=== PATIENT | female | born 1970 | race Caucasian/White ===

== ENCOUNTER 2016-10-02 21:32 | Emergency (ER) | payer OTHER ==
[~2016-10-02] VITALS: Ht 152.4 cm; Wt 68.8 kg
[~2016-10-02 21:32] MED LIST: ANT25 PO; ASMTWH INH; CETICHW4 PO; IBUP-1050 PO; MOME50SP5; PRLSR20 PO
[2016-10-02 21:33] VITALS: TEMP 37; Ht 152.4 cm; Wt 68.8 kg
[2016-10-02 22:07] LABS: PREG INTERNAL NEGATIVE QC NEG CLEAR BACKGROUND; PREG INTERNAL POSITIVE QC POS CONTROL LINE
[2016-10-02] MEDS ORDERED: FLNIN/ NAE (22:20)
[2016-10-02] MEDS ORDERED: ADVIN25/60 INH (22:20)
[2016-10-02] MEDS ORDERED: VNTHFA/IN INH (22:20)
[2016-10-02] MEDS ORDERED: PANT20TA PO (22:20)
[2016-10-02] MEDS ORDERED: SNG10 PO (22:20)
[2016-10-02] MEDS ORDERED: FLX/5 PO (22:20)
[2016-10-02 22:26] LABS: BASO % 2.2 %; COMPLETE YES; HEMATOCRIT 34.5 % (37-47); IG% 0.2 %; LYMPH ABS # 1.29 K/uL (1.2-3.4); MEAN CORPUSCULAR HEMOGLOBIN 26.8 pg (25-34); MEAN PLATELET VOLUME 9.8 fL (7.4-10.4); MONO % 9.1 %; NEUT % 58.5 %; PLATELET COUNT 317 K/uL (130-400); RED BLOOD COUNT 4.26 M/uL (4.2-5.4); WHITE BLOOD COUNT 4.61 K/uL (4.8-10.8)
[2016-10-02 22:32] LABS: BENZODIAZEPINE, URINE NEG (NEG); COCAINE,URINE NEG (NEG); PHENCYCLIDINE, URINE NEG (NEG)
[2016-10-02 22:44] LABS: BUN/CREATININE RATIO 21.5 (10-20); CALCIUM 8.8 mg/dl (8.5-10.1); CREATININE 0.62 mg/dl (0.60-1.20); POTASSIUM 3.7 mmol/L (3.5-5.1)
[2016-10-02] MEDS ORDERED: ALBUTEROL HFA 8 GM INHALER INH ONE (22:45)
[2016-10-02 22:52] LABS: ACETAMINOPHEN < 2 ug/ml (10-30)
[2016-10-02 22:55] LABS: ALB/GLOB RATIO 0.9 (0.9-2); THYROID STIMULATING HORMONE 2.33 uIu/ml (0.300-4.500)
--- NOTE | 2016-10-03 00:40 | EMERGENCY ROOM VISIT NOTE ---
History Report prepared by Allen: Andreea Quispe Under the Supervision of: Dr. Suresh Mckeon D.O. 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 The patient was arguing with her today. The patient and her are and he currently owes her money. She took a paring knife and brought it to her wrist in anger. She was not intending to kill herself. She states that she was just taking out the anger towards her on herself. She did not make any statements about wanting to kill herself. She denies any history of mental health problems or attempts to hurt herself before. She is agreeable to outpatient care, but would not like inpatient care as she has a job and children and pets to take care of. She denies any drug or alcohol use. She denies any chance of . She denies any history of diabetes or thyroid problems. 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 Review of Systems See HPI for pertinent positives & negatives. A total of 10 systems reviewed and were otherwise negative. Past Medical & Surgical Medical Problems: (1) Asthma, Unspecified (2) GERD (gastroesophageal reflux disease) (3) Tobacco Use Disorder Surgical Problems: (1) History of tubal ligation Family History Cancer Hypertension Social History Smoking Status: Never Smoker Alcohol Use: none Drug Use: none Marital Status: Occupation Status: employed Current/Historical Medications Scheduled Albuterol Hfa (Ventolin Hfa), 2 PUFFS INH UD Cyclobenzaprine HCl (Cyclobenzaprine HCl), 2.5 MG PO HS Fluticasone Prop/Salmeterol (Advair Diskus 250/50 60 Dose), 1 PUFF INH DAILY Fluticasone Propionate (Fluticasone Propionate), 2 SPRAYS LOUANN BID Montelukast Sod (Montelukast Sodium), 10 MG PO HS Pantoprazole Sodium (Protonix), 20 MG PO DAILY Scheduled PRN Ibuprofen (Advil), 400-600 MG PO Q6H PRN for Pain Allergies Coded Allergies: Aspirin (Verified Allergy, Unknown, 08/31/13) Erythromycin (Verified Allergy, Unknown, RASH, 10/02/16) Penicillins (Verified Allergy, Unknown, 02/04/11) Sulfa Drugs (Verified Allergy, Unknown, 02/04/11) Sulfamethoxazole (Verified Allergy, Unknown, 02/04/11) Uncoded Allergies: HAYFEVER, SEASONAL ALLERGIES (Allergy, Unknown, 04/25/02) NONSTEROIDAL (Allergy, Unknown, 04/17/09) Physical Exam Vital Signs Date Time Temp Pulse Resp B/P (MAP) Pulse Ox O2 Delivery O2 Flow Rate FiO2 10/02/16 22:33 74 18 133/85 99 Room Air 10/02/16 21:33 37.0 93 18 150/91 97 Room Air Physical Exam CONSTITUTIONAL/VITAL SIGNS: Reviewed / noted above. GENERAL: Non-toxic in appearance. INTEGUMENTARY: Warm, dry, and Dent. HEAD: Normocephalic. EYES: without scleral icterus or trauma. ENT/OROPHARYNX: clear and moist. LYMPHADENOPATHY/NECK: Is supple without lymphadenopathy or meningismus. RESPIRATORY: Lungs clear and equal. CARDIOVASCULAR: Regular rate and rhythm. GI/ABDOMEN: Soft and nontender. No organomegaly or pulsatile mass. No rebound or guarding. Normal bowel sounds. EXTREMITIES: Warm and well perfused. BACK: No CVA tenderness. NEUROLOGICAL: Intact without focal deficits. PSYCHIATRIC: mildly depressed affect. MUSCULOSKELETAL: Normally developed with good muscle tone. Medical Decision & Procedures Laboratory Results 10/02/16 22:11 Red Blood Count 4.26, Mean Corpuscular Volume 81.0, Mean Corpuscular Hemoglobin 26.8, Mean Corpuscular Hemoglobin Concent 33.0, Mean Platelet Volume 9.8, Neutrophils (%) (Auto) 58.5, Lymphocytes (%) (Auto) 28.0, Monocytes (%) (Auto) 9.1, Eosinophils (%) (Auto) 2.0, Basophils (%) (Auto) 2.2, Neutrophils # (Auto) 2.70, Lymphocytes # (Auto) 1.29, Monocytes # (Auto) 0.42, Eosinophils # (Auto) 0.09, Basophils # (Auto) 0.10 10/02/16 22:11 Test 10/02/16 21:45 10/02/16 22:11 Urine Test NEG (NEG) Urine Opiates Screen NEG (NEG) Urine Methadone, Qualitative NEG (NEG) Urine Barbiturates NEG (NEG) Urine Phencyclidine (PCP) Level NEG (NEG) Ur Amphetamine/Methamphetamine NEG (NEG) MDMA (Ecstasy) Screen NEG (NEG) Urine Benzodiazepines Screen NEG (NEG) Urine Cocaine Metabolite NEG (NEG) Urine Marijuana (THC) NEG (NEG) White Blood Count 4.61 K/uL (4.8-10.8) Red Blood Count 4.26 M/uL (4.2-5.4) Hemoglobin 11.4 g/dL (12.0-16.0) Hematocrit 34.5 % (37-47) Mean Corpuscular Volume 81.0 fL (80-100) Mean Corpuscular Hemoglobin 26.8 pg (25-34) Mean Corpuscular Hemoglobin Concent 33.0 g/dl (32-36) Platelet Count 317 K/uL (130-400) Mean Platelet Volume 9.8 fL (7.4-10.4) Neutrophils (%) (Auto) 58.5 % Lymphocytes (%) (Auto) 28.0 % Monocytes (%) (Auto) 9.1 % Eosinophils (%) (Auto) 2.0 % Basophils (%) (Auto) 2.2 % Neutrophils # (Auto) 2.70 K/uL (1.4-6.5) Lymphocytes # (Auto) 1.29 K/uL (1.2-3.4) Monocytes # (Auto) 0.42 K/uL (0.11-0.59) Eosinophils # (Auto) 0.09 K/uL (0-0.5) Basophils # (Auto) 0.10 K/uL (0-0.2) RDW Standard Deviation 46.0 fL (36.4-46.3) RDW Coefficient of Variation 15.6 % (11.5-14.5) Immature Granulocyte % (Auto) 0.2 % Immature Granulocyte # (Auto) 0.01 K/uL (0.00-0.02) Anion Gap 10.0 mmol/L (3-11) Est Creatinine Clear Calc Drug Dose 98.1 ml/min Estimated GFR () 125.3 Estimated GFR (Non- 108.1 BUN/Creatinine Ratio 21.5 (10-20) Calcium Level 8.8 mg/dl (8.5-10.1) Total Bilirubin 0.3 mg/dl (0.2-1) Aspartate Amino Transf (AST/SGOT) 31 U/L (15-37) Alanine Aminotransferase (ALT/SGPT) 19 U/L (12-78) Alkaline Phosphatase 79 U/L (45-117) Total Protein 7.4 gm/dl (6.4-8.2) Albumin 3.5 gm/dl (3.4-5.0) Globulin 3.9 gm/dl (2.5-4.0) Albumin/Globulin Ratio 0.9 (0.9-2) Thyroid Stimulating Hormone (TSH) 2.330 uIu/ml (0.300-4.500) Salicylates Level < 1.7 mg/dl (2.8-20) Acetaminophen Level < 2 ug/ml (10-30) Ethyl Alcohol mg/dL < 3.0 mg/dl (0-3) Laboratory results as stated above per my review. Medications Administered Medications (Trade) Dose Ordered Sig/Nandini Route Start Time Stop Time Status Last Admin Dose Admin Albuterol (Ventolin Hfa Inhaler) 2 puffs NOW ONCE INH 10/02/16 22:45 10/02/16 22:46 DC 10/02/16 22:39 60 PUFFS ED Course 2139: Previous medical records were reviewed. The patient was evaluated in room A6. A complete history and physical examination was performed. 2245: Albuterol 2 puffs INH. 0045: On reevaluation, the patient is resting comfortably. I discussed the results and findings with the patient. She verbalized agreement of the treatment plan. She was discharged home. Medical Decision differential includes toxic ingestions, self-mutilation, suicidal ideation, suicide attempt, depression. This is a 46-year-old female who presents to the ED with a chief complaint of stating that she was upset with her current . She is currently . She states that he owes her rent. She was in an argument with him today about this and she subsequently was upset. She states that she took a small paring knife and was lightly cutting her wrist. She has no history of this. She denies being suicidal or homicidal. She states that she was taking her anger out on herself. The patient denies being suicidal or homicidal at this time. Her exam was relatively unremarkable. She has a slight scratch to the left wrist. It is unlikely the patient was attempting to seriously injure her self with this attempt. Her blood work was unremarkable. She was medically cleared. She was evaluated by the [facility] mental health services staff. They also do not feel the patient is actively suicidal. She does agree to safety planning. She agrees to outpatient follow-up. The patient was felt to be stable for discharge. Medication Reconcilliation Current Medication List: was personally reviewed by me Blood Pressure Screening Patient's blood pressure: Elevated blood pressure Blood pressure disposition: Elevated BP felt to be situational Impression Primary Impression: Depression Scribe Attestation The scribe's documentation has been prepared under my direction and personally reviewed by me in its entirety. I confirm that the note above accurately reflects all work, treatment, procedures, and medical decision making performed by me. Departure Information Dispostion Home / Self-Care Referrals Jovani Conte M.D. (MEDICAL) (PCP) Patient Instructions [facility] Additional Instructions Follow-up with outpatient resources as discussed. Return for any concerns or worsening.
[2016-10-03 00:48] VITALS: BP 135/73; PULSE 85; O2SAT 97
== END 2016-10-03 00:54 | disposition home or self-care (01) ==
LOC: C.EDB 21:33 → C.EDA 10-03 00:54
DX: F32.9 Major depressive disorder, single episode, unspecified (principal); K21.9 Gastro-esophageal reflux disease without esophagitis; J45.909 Unspecified asthma, uncomplicated; F17.200 Nicotine dependence, unspecified, uncomplicated; Z98.51 Tubal ligation status; Z79.899 Other long term (current) drug therapy; Z88.0 Allergy status to penicillin; Z88.2 Allergy status to sulfonamides; Z88.3 Allergy status to other anti-infective agents; Z88.6 Allergy status to analgesic agent; Z80.9 Family history of malignant neoplasm, unspecified; Z82.49 Family history of ischemic heart disease and other diseases of the circulatory system

== ENCOUNTER → 2017-03-14 | Outpatient (CLI) | payer OTHER ==
[~2017-03-14] MED LIST changes: +ADVIN25/60 INH; -ANT25 PO; -ASMTWH INH; -CETICHW4 PO; +FLNIN/ NAE; +FLX/5 PO; -MOME50SP5; +PANT20TA2 PO; -PRLSR20 PO; +SNG10 PO; +VNTHFA/IN INH
--- NOTE | 2017-03-15 14:56 | MAMMOGRAPHY REPORT ---
BILATERAL DIGITAL SCREENING MAMMOGRAM TOMOSYNTHESIS WITH CAD: 03/14/2017 CLINICAL HISTORY: Routine screening. TECHNIQUE: Breast tomosynthesis in addition to standard 2D mammography was performed. Current study was also evaluated with a Computer Aided Detection (CAD) system. COMPARISON: Comparison is made to exams dated: 02/06/2015 mammogram, 03/08/2016 mammogram, 10/25/2012 mammogram, 10/20/2011 mammogram, 10/15/2010 mammogram, and 10/09/2009 mammogram - [facility] [address] enter. BREAST COMPOSITION: There are scattered areas of fibroglandular density in both breasts. FINDINGS: The right 2-D CC view is slightly degraded by patient motion. However, the right CC tomosy nthesis images and reconstructed C-view have no patient motion and are felt to be adequate for evalua tion from a technical standpoint. There are scattered stable benign calcifications in the breasts. Numerous circumscribed subcentimeter masses are again seen in the left breast, stable comparing to pr ior mammograms, particularly the tomosynthesis images from 2016, most likely representing benign fibr ocystic change. No new suspicious mass, architectural distortion or cluster of microcalcifications i s seen. IMPRESSION: ACR BI-RADS CATEGORY 1: NEGATIVE There is no mammographic evidence of malignancy. A 1 year screening mammogram is recommended. The pa tient will receive written notification of the results. Approximately 10% of breast cancers are not detected with mammography. A negative mammographic report should not delay biopsy if a clinically suggestive mass is present. Estrellita Vizcaino M.D. ay/:03/14/2017 17:14:17 Sales Promotion Manager: Alanis CALVERT(Consuelo)(Gricelda), [facility] letter sent: Normal 1/2 BI-RADS Code: ACR BI-RADS Category 1: Negative
== END | disposition home or self-care (01) ==
LOC: C.MAMM 07:34
PROVIDERS: ATTEND Family Medicine
DX: Z12.31 Encounter for screening mammogram for malignant neoplasm of breast (principal)